=== PATIENT | female | born 1955 ===

== ENCOUNTER 2021-03-05 13:47 | Outpatient (REF) | payer SELFPAY | END 2021-03-05 13:48 | disposition home or self-care (01) | LOC: HO.HAP 13:47 | DX: Z13.89 Encounter for screening for other disorder (principal) ==

== ENCOUNTER 2021-09-08 14:46 | Outpatient (REF) | payer SELFPAY | END 2021-09-08 14:47 | disposition home or self-care (01) | LOC: HO.HAP 14:46 | DX: Z13.89 Encounter for screening for other disorder (principal) ==

== ENCOUNTER 2022-04-21 13:18 | Outpatient (REF) | payer SELFPAY ==
--- NOTE | 2022-04-21 14:29 | MHC.AU.HA3 ---
Hearing Instrument Follow-Up- Binaural Date of Visit: 04/21/22 Right Ear: Roberto, Model, Color, Serial Number: Clemencia Jernigan P70-R SN: [id number] Color: Sand Beige Lithographic Platemaker Repair Warranty: 04/16/2024 Lithographic Platemaker Loss and Damage Warranty: 04/16/2024 Battery Size: Rechargeable Tool Liaison/Slim Tube: Size 0 M Earmold/Dome/CShell/SlimTip:Small power dome Type of Wax Guard: Cerushield Dispensed By: [facility] Date of Fittin01/29/2021 Left Ear: Roberto, Model, Color, Serial Number: Clemencia Jernigan P70-R SN: [id number] Color: Sand Beige Lithographic Platemaker Repair Warranty: 04/16/2024 Lithographic Platemaker Loss and Damage Warranty: 04/16/2024 Battery Size: Rechargeable Tool Liaison/Slim Tube: Size 0 M Earmold/Dome/CShell/SlimTip: Small power dome Type of Wax Guard: Cerushield Dispensed By: [facility] Date of Fittin01/29/2021 Follow-Up Summary: Angi returned for a routine hearing aid check. She reported recently she noticed her hearing aids sound weaker and she has not been hearing as well with them. Upon inspection, significant wax build up noted in wax guards and domes. Cleaned hearing aids and vacuumed microphones. Replaced domes, wax guards, and retention tails. A listening check demonstrated that the hearing aids are in good working order. Angi noticed an immediate improvement in office. Reviewed cleaning. She also reported that she had an updated audiological evaluation at the ENT office in November. She will contact the ENT office for the records. Recommendations: Hearing instrument maintenance in 6 months, or sooner if needed. Please contact our clinic with any questions or concerns. Patient will call if problems persist. Diagnosis Code(s): Primary Diagnosis: H90.3 Bilateral Sensorineural Hearing Loss Signature: Provider: Nazia Borjas, [facility]
== END 2022-04-21 13:19 | disposition home or self-care (01) ==
LOC: HO.HAP 13:18
PROVIDERS: Visit Provider Internal Medicine
DX: Z13.89 Encounter for screening for other disorder (principal)

== ENCOUNTER 2022-10-06 13:06 | Outpatient (REF) | payer SELFPAY | END 2022-10-06 13:07 | disposition home or self-care (01) | LOC: HO.HAP 13:06 | PROVIDERS: Visit Provider Internal Medicine | DX: Z13.89 Encounter for screening for other disorder (principal) ==

== ENCOUNTER 2023-04-08 12:43 | Outpatient (REF) | payer SELFPAY ==
--- NOTE | 2023-04-08 13:53 | MHC.AU.HA3 ---
Hearing Instrument Follow-Up- Binaural Date of Visit: 04/08/23 Event Mgr Used: Right Ear: Roberto, Model, Color, Serial Number: Clemencia Jernigan P70-R SN: [id number] Color: Sand Beige Blue Line Trimmer Repair Warranty: 04/16/2024 [employer] Line Trimmer Loss and Damage Warranty: 04/16/2024 [facility] Service Plan: Battery Size: Rechargeable Operations Developer/Slim Tube: Size 0 M Earmold/Dome/CShell/SlimTip:Small power dome Type of Wax Guard: Cerushield Dispensed By: [facility] Date of Fittin01/29/2021 Left Ear: Roberto, Model, Color, Serial Number: Clemencia Jernigan P70-R SN: [id number] Color: Sand Beige Blue Line Trimmer Repair Warranty: 04/16/2024 Blue Line Trimmer Loss and Damage Warranty: 04/16/2024 [facility] Service Plan: Battery Size: Rechargeable Operations Developer/Slim Tube: Size 0 M Earmold/Dome/CShell/SlimTip: Small power dome Type of Wax Guard: Cerushield Dispensed By: [facility] Date of Fittin01/29/2021 Follow-Up Summary: Angi reports her right hearing aid is not charging and her left aid seems weak. Cleaned both aids- both had significant wax build-up. Replaced wax guards, domes, vacuumed mics. Left aid sounds good after cleaning. Right aid ; not working in our business intelligence architect either. Sending out for repair. When aid returns, programming from 04/08/23 should be loaded into device. Recommendations: Recommendations: Patient will be contacted when materials have arrived. Diagnosis Code(s): Primary Diagnosis: H90.3 Bilateral Sensorineural Hearing Loss Signature: Provider: Valery Lozano, [facility]
== END 2023-04-08 12:44 | disposition home or self-care (01) ==
LOC: HO.HAP 12:43
PROVIDERS: Visit Provider Otolaryngology
DX: Z13.89 Encounter for screening for other disorder (principal)

== ENCOUNTER 2023-05-04 13:34 | Outpatient (REF) | payer SELFPAY | END 2023-05-04 13:35 | disposition home or self-care (01) | LOC: HO.HAP 13:34 | DX: Z13.89 Encounter for screening for other disorder (principal) ==

== ENCOUNTER 2023-12-28 12:50 | Outpatient (REF) | payer SELFPAY | END 2023-12-28 12:51 | disposition home or self-care (01) | LOC: HO.HAP 12:50 | DX: Z13.89 Encounter for screening for other disorder (principal) ==